=== PATIENT | female | born 1970 | race Caucasian/White ===

== ENCOUNTER 2019-03-30 18:00 | Emergency (ER) | payer OTHER ==
[~2019-03-30] VITALS: Ht 142.2 cm; Wt 105.9 kg
[~2019-03-30 18:00] MED LIST: CEPH-443 PO; NAPR-985 PO; ONDA4TAB8 PO
[2019-03-30 18:23] VITALS: Ht 142.2 cm; Wt 105.9 kg
[2019-03-30] MEDS ORDERED: CEFTRIAXONE 1 GM/50 ML (PMX) 50 ML IVPB STA (18:26)
[2019-03-30] MEDS ORDERED: ACETAMINOPHEN 325 MG TAB PO STA (18:26)
[2019-03-30] MEDS ORDERED: SOD CHLORIDE 0.9% 1,000 ML IV STA (18:52)
[2019-03-30] MEDS ORDERED: ONDANSETRON 4 MG INJ IV STA (18:52)
[2019-03-30] MEDS ORDERED: ONDANSETRON 4 MG INJ ONE (18:55)
[2019-03-30 20:03] VITALS: BP 97/75; PULSE 89; RESP 18
== END 2019-03-30 20:11 | disposition home or self-care (01) ==
LOC: E/R 18:00
DX: N39.0 Urinary tract infection, site not specified (principal)
CPT/HCPCS: 36415; 71045; 80053; 81001; 81025; 83605; 84484; 85025; 85610; 85730; 87040; 87086; 96365; 96375; 99285; J0696; J2405; J7030; 93005